=== PATIENT | male | born 1985 | race Caucasian/White ===

== ENCOUNTER 2018-08-04 15:48 | Emergency (ER) | payer MEDICAID, OTHER ==
[~2018-08-04] VITALS: Ht 177.8 cm; Wt 111.1 kg
--- NOTE | 2018-08-04 16:45 | NUR ---
PT WAS EVALUATED BY DR ELMORE. PT WAS D/C'd TO HOME. D/C INSTRUCTIONS GIVEN TO THE PT.
[2018-08-04 16:46] VITALS: BP 141/78
== END 2018-08-04 16:48 | disposition home or self-care (01) ==
LOC: ER 15:50
DX: L73.8 Other specified follicular disorders (principal); K21.9 Gastro-esophageal reflux disease without esophagitis; F17.200 Nicotine dependence, unspecified, uncomplicated
CPT/HCPCS: A4663